=== PATIENT | male | born 1995 | race African-American/Black ===

== ENCOUNTER 2019-01-07 11:49 | Emergency (ER) | payer OTHER ==
[~2019-01-07] VITALS: Ht 195.6 cm; Wt 89.3 kg
[2019-01-07] MEDS ORDERED: KETOROLAC 30 MG/ML VIAL (J1885) IV ONE (12:30)
[2019-01-07] MEDS ORDERED: NS 1,000 ML IV ONE (12:30)
[2019-01-07] MEDS ORDERED: ONDANSETRON 4MG/2ML VIAL (J2405) IV ONE (12:30)
[2019-01-07 12:49] LABS: APPEARANCE, URINE CLEAR (CLEAR); BACTERIA, URINE AUTO NEGATIVE (NEGATIVE); BILIRUBIN, URINE AUTO NEGATIVE (NEGATIVE); BLOOD, URINE BLOOD NEGATIVE (NEGATIVE); COLOR, URINE YELLOW (YELLOW); GLUCOSE, URINE (UA) AUTO NEGATIVE (NEGATIVE); KETONE, URINE AUTO NEGATIVE (NEGATIVE); LEUKOCYTE ESTERASE, URINE AUTO NEGATIVE (NEGATIVE); NITRITE, URINE AUTO NEGATIVE (NEGATIVE); PROTEIN, URINE AUTO NEGATIVE (NEGATIVE); RBC, URINE AUTO 1 /HPF (0-3); SPECIFIC GRAVITY URINE AUTO 1.017 (1.002-1.035); SQUAMOUS EPITHELIAL CELL UR AU 0 /HPF (0-6); UROBILINOGEN, URINE AUTO 0.2 mg/dL (0.0-2.0); WBC, URINE AUTO 5 /HPF (0-3)
[2019-01-07 12:51] LABS: BASO % 0.3 % (0.0-1.0); EOS % 0.7 % (0.0-3.0); HEMOGLOBIN 14.5 g/dl (13.5-17.5); LYMPH # 1.3 10^3/uL (1.5-6.5); LYMPH % 21.8 % (24.0-44.0); MEAN CORPUSCULAR HEMOGLOBIN 31.1 pg (27.0-33.0); MEAN CORPUSCULAR VOLUME 94.4 fl (80.0-96.0); MONO # 0.5 10^3/uL (0.0-0.8); MONO % 8.9 % (0.0-5.0); NEUTROPHILS # 4.1 10^3/uL (1.8-7.7); NEUTROPHILS % 68.1 % (36.0-66.0); PLATELET COUNT, AUTOMATED 216 10^3/uL (150-450); RED BLOOD COUNT 4.66 10^6/uL (4.30-6.10)
[2019-01-07 13:12] LABS: ALBUMIN 4.5 GM/DL (3.2-5.2); ALT/SGPT 129 U/L (12-78); AMYLASE 89 U/L (25-115); BILIRUBIN,DIRECT 0.2 MG/DL (0.0-0.2); BILIRUBIN,TOTAL 0.6 MG/DL (0.2-1.0); BLOOD UREA NITROGEN 9 MG/DL (7-18); CALCIUM LEVEL 9.7 MG/DL (8.5-10.1); CARBON DIOXIDE LEVEL 30 MEQ/L (21-32); CHLORIDE LEVEL 105 MEQ/L (98-107); CREATININE FOR GFR 1.22 MG/DL (0.70-1.30); GLOMERULAR FILTRATION RATE > 60.0 (>60); GLUCOSE, FASTING 84 MG/DL (70-100); LIPASE 103 U/L (73-393); POTASSIUM SERUM 4.2 MEQ/L (3.5-5.1); SODIUM LEVEL 140 MEQ/L (136-145); TOTAL PROTEIN 8.8 GM/DL (6.4-8.2)
[2019-01-07] MEDS: GASTROGRAFIN SOLUTION 30ML PO SCH ×2 (13:34→14:13)
[2019-01-07] MEDS ORDERED: MORPHINE 2 MG/ML 1ML SYRINGE (J2270) IV ONE (14:15)
[2019-01-07] MEDS ORDERED: METOCLOPRAMIDE 10 MG TAB PO ONE (14:15)
[2019-01-07] MEDS ORDERED: METOCLOPRAMIDE INJ 10MG/2ML VIAL (J2765) IV ONE (14:20)
[2019-01-07] MEDS ORDERED: ISOVUE-370 76% 100ML VIAL (Q9967) As Ordered ONE (15:06)
[2019-01-07 16:04] VITALS: BP 138/88
--- NOTE | 2019-01-07 16:07 | REP ---
HISTORY: Abdominal pain. COMPARISON: None. CONTRAST: 100 mL [id number] The lung bases are clear. The liver, gallbladder, spleen, pancreas, adrenal glands, and kidneys are normal. The abdominal aorta and paraaortic regions are normal. The bowel loops and their mesenteries are within normal limits. There is no free fluid or free air. The appendix is not visualized, however, there is no evidence of fatty infiltration in the right lower quadrant particularly in the pericecal region. There is no abnormal free fluid in the right paracolic gutter. CT PELVIS: The pelvic bowel loops and the mesenteries are within normal limits. There is no evidence of a mass or adenopathy. There is no free fluid or free air. Bone window technique throughout the exam shows the osseous structures to be within normal limits. IMPRESSION: CT findings are within normal limits. The appendix is not visualized, however, there are no secondary signs of acute appendicitis. This examination should be correlated clinically with appropriate followup if necessary. Electronically Signed by Shay Moncada DO 01/07/2019 05:11 P
== END 2019-01-07 16:06 | disposition home or self-care (01) ==
LOC: M ED 11:49
DX: K52.9 Noninfective gastroenteritis and colitis, unspecified (principal); Z72.0 Tobacco use
CPT/HCPCS: 74177; 80048; 80076; 81001; 82150; 83690; 85025; 96361; 96374; 96375; 99284; J1885; J2270; J2405; J2765; Q9963; Q9967